=== PATIENT | female | born 1945 | race Two or more races ===

== ENCOUNTER → 2020-12-12 | Outpatient (CLI) | payer OTHER ==
[~2020-12-12] VITALS: Ht 157.5 cm; Wt 86.2 kg
[~2020-12-12] MED LIST: AMLODIPI PO; IRBESARTAN-HCT1 EACH PO; NORVASC5 MG PO; SYNTH PO; SYNTHROID50 MCG PO
== END | disposition home or self-care (01) ==
LOC: LAB → ADM → SURH 12-19 10:45 → EDSTATUS 12-19 11:15
PROVIDERS: ATTEND Orthopaedic Surgery Sports Medicine
DX: M17.12 Unilateral primary osteoarthritis, left knee (principal); Z03.818 Encounter for observation for suspected exposure to other biological agents ruled out